=== PATIENT | male | born 1990 | race Hispanic/Latino ===

== ENCOUNTER 2018-10-19 00:01 | Emergency (ER) | payer MEDICAID ==
[2018-10-19 00:01] VITALS: BMI 22.1
[2018-10-19 00:18] VITALS: RESP 18; TEMP 97.3; O2SAT 99
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
[2018-10-19 02:12] VITALS: BP 110/68; PULSE 82
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
--- NOTE | 2018-10-19 08:09 | RAD ---
Date of service: 10/19/2018 PROCEDURE: Right Wrist Radiographs. HISTORY: right wrist pain s/p injury COMPARISON: None. FINDINGS: BONES: No acute fracture or destructive bony lesion identified. JOINTS: Normal. No dislocation. SOFT TISSUES: Trace emphysematous changes questioned at the lateral wrist soft tissues. OTHER FINDINGS: None. IMPRESSION: No acute bony findings. Trace emphysematous changes questioned at the lateral wrist soft tissues.
== END 2018-10-19 02:05 | disposition home or self-care (01) ==
LOC: ED 00:01
DX: S69.91XA Unspecified injury of right wrist, hand and finger(s), initial encounter (principal); Y04.0XXA Assault by unarmed brawl or fight, initial encounter; F17.210 Nicotine dependence, cigarettes, uncomplicated; M79.644 Pain in right finger(s)